=== PATIENT | male | born 1940 | race Caucasian/White ===

== ENCOUNTER 2022-06-07 11:20 | Day surgery (SDC) | payer OTHER ==
[~2022-06-07] VITALS: Ht 167.6 cm; Wt 92.6 kg
[~2022-06-07 11:20] MED LIST: ACET325; ALLO300 PO; CHOLP; CLON.1; DICMIS75EC; DIPASPER; EZET10; FINA5 PO; FOLI1; GABA800 PO; GLUCHON PO; HYDACE5 PO; OXYC10ER; PRAM.5; ROPI2; ROSU10TA PO; VITB100; WARF5 PO; WARF7.5 PO; [UNRECOGNIZED DRUG - OTHER] PO
[2022-06-07] MEDS ORDERED: TAMS.4ER (12:31)
[2022-06-07] MEDS ORDERED: XARELTO20 MG (12:31)
[2022-06-07] MEDS ORDERED: FERSU90EL (12:31)
[2022-06-07] MEDS ORDERED: CREON DR 3,0001 EACH (12:31)
== END 2022-06-07 14:56 | disposition home or self-care (01) ==
LOC: ORSCSDS 11:20
PROVIDERS: Internal Medicine Gastroenterology
PROC: 0DBL8ZX Excision of Transverse Colon, Via Natural or Artificial Opening Endoscopic, Diagnostic (ICD-10-PCS; principal; 2022-06-07 12:45)
PROC: 0DBH8ZX Excision of Cecum, Via Natural or Artificial Opening Endoscopic, Diagnostic (ICD-10-PCS; principal; 2022-06-07 12:45)
DX: Z12.11 Encounter for screening for malignant neoplasm of colon (principal); Z86.010 Personal history of colon polyps; D12.0 Benign neoplasm of cecum; D12.3 Benign neoplasm of transverse colon; K57.30 Diverticulosis of large intestine without perforation or abscess without bleeding; K64.8 Other hemorrhoids; I10 Essential (primary) hypertension; I48.91 Unspecified atrial fibrillation; Z79.01 Long term (current) use of anticoagulants; J44.9 Chronic obstructive pulmonary disease, unspecified; Z87.891 Personal history of nicotine dependence; G47.33 Obstructive sleep apnea (adult) (pediatric); Z79.899 Other long term (current) drug therapy
CPT/HCPCS: 88305; J0330; J0461; J2405; J2704; J7120; Q9968

== ENCOUNTER → 2023-12-11 | Outpatient (CLI) | payer OTHER ==
[~2023-12-11] MED LIST changes: +CREON DR 3,0001 EACH; +FERSU90EL; +TAMS.4ER; +XARELTO20 MG
[2023-12-14 21:02] LABS: PANCREATIC ELASTASE,FECAL 216 ug/g (>=100)
[2023-12-15 21:40] LABS: CALPROTECTIN,FECAL 200 ug/g (<=49)
== END | disposition home or self-care (01) ==
LOC: LAB 20:40 → LAB SHORT 20:40
PROVIDERS: Physician Assistant Medical
DX: R19.7 Diarrhea, unspecified (principal)
CPT/HCPCS: 82653; 83993

== ENCOUNTER 2024-01-27 10:11 | Emergency (ER) | payer OTHER ==
[~2024-01-27] VITALS: Ht 167.6 cm; Wt 95.2 kg
[~2024-01-27 10:11] MED LIST changes: +FOLIC ACID0.4 MG PO; +ROPINIROLE HCL4 M1 PO; -XARELTO20 MG; +XARELTO20 MG PO
[2024-01-27 10:41] LABS: BASOPHILS ABSOLUTE AUTO 0.04 K/mm3 (0.00-0.23); BASOPHILS PERCENT AUTO 1 % (0-2); EOSINOPHILS ABSOLUTE AUTO 0.11 K/mm3 (0.00-0.68); EOSINOPHILS PERCENT AUTO 3 % (0-6); Hematocrit 40.6 % (37.0-53.0); Hemoglobin 13.1 g/dL (13.5-17.5); IMMATURE GRAN ABSOLUTE AUTO 0.02 K/mm3 (0.00-0.10); IMMATURE GRAN PERCENT AUTO 1 % (0-1); LYMPHOCYTES ABSOLUTE AUTO 1.02 K/mm3 (0.84-5.20); LYMPHOCYTES PERCENT AUTO 24 % (21-46); MONOCYTES ABSOLUTE AUTO 0.41 K/mm3 (0.16-1.47); MONOCYTES PERCENT AUTO 10 % (4-13); Mean Corpuscular HGB 29.3 pg (26.0-34.0); Mean Corpuscular HGB Conc 32.3 g/dL (31.5-36.5); Mean Corpuscular Volume 91 fL (80-100); Mean Platelet Volume 10.1 fL (9.1-12.4); NEUTROPHILS ABSOLUTE AUTO 2.72 K/mm3 (1.96-9.15); NEUTROPHILS PERCENT AUTO 63 % (41-73); Platelet Count 112 K/mm3 (150-400); RDW Coefficient Variation 18.4 % (11.7-14.2); RDW Standard Deviation 61.5 fL (35.1-46.3); Red Blood Cell Count 4.47 M/mm3 (4.30-5.90); White Blood Cell Count 4.32 K/mm3 (4.00-11.30)
[2024-01-27 11:00] VITALS: BP 125/73
[2024-01-27 11:12] LABS: Albumin, Blood 3.1 g/dL (3.4-5.0); Albumin/Globulin Ratio 0.9 (0.8-1.8); Bilirubin, Total 0.7 mg/dL (0.1-1.0); Bun/Creatinine Ratio 17.2 (12.0-20.0); Calcium, Blood 8.5 mg/dL (8.5-10.1); Creatinine, Blood 1.28 mg/dL (0.60-1.20); Globulin, Blood 3.5 g/dL (2.2-4.0); Potassium, Blood 4.3 mmol/L (3.5-5.5); Total Protein, Blood 6.6 g/dL (6.4-8.2)
[2024-01-27] MEDS ORDERED: Diphth,Pertuss(Acell),Tet Vac 0.5 ML VIAL IM ONE (11:40)
[2024-01-27] MEDS ORDERED: Lasix20 MG PO (12:45)
== END 2024-01-27 13:16 | disposition home or self-care (01) ==
LOC: ER 10:11
PROVIDERS: Emergency Medicine
DX: R06.02 Shortness of breath (principal); I11.9 Hypertensive heart disease without heart failure; I50.9 Heart failure, unspecified; I48.91 Unspecified atrial fibrillation; E78.5 Hyperlipidemia, unspecified; G47.30 Sleep apnea, unspecified; Z79.899 Other long term (current) drug therapy; Z88.8 Allergy status to other drugs, medicaments and biological substances
CPT/HCPCS: 71045; 80053; 83880; 84484; 85025; 90715

== ENCOUNTER 2024-03-19 05:33 | Day surgery (SDC) | payer OTHER ==
[~2024-03-19 05:33] MED LIST changes: +ATOR40TA PO; +BANATROL PLUS1 EAC1 PO; +CLOP75 PO; +ELIQUIS2.5 MG PO; +FURO20 PO; +FURO40 PO; +GABA300 PO; +JARDIANCE10 MG PO; +LOSA25 PO; +Lasix20 MG PO; +METO25ER PO; +SOAANZ20 M2 PO
[2024-03-19] MEDS ORDERED: NS 0 ML IV ONE (06:14)
[2024-03-19] MEDS ORDERED: Amiodarone HCl200 MG PO (06:28)
[2024-03-19 06:39] VITALS: BP 114/75
[2024-03-19 06:45] VITALS: BP 104/75
[2024-03-19 06:51] VITALS: BP 104/71
--- NOTE | 2024-03-19 07:16 | NUR ---
PT PLACED ON MONITOR. SB 50-59BPM. EKG DONE. IV REMOVED. PT VERBALIZED UNDERSTANDING OF VERBAL D/C INST. PT TAKEN OUT OF THE DEPARTMENT VIA W/C POST MEETING /C .
== END 2024-03-19 07:00 | disposition home or self-care (01) ==
LOC: MHTC 05:33
DX: I48.91 Unspecified atrial fibrillation (principal); Z53.09 Procedure and treatment not carried out because of other contraindication
CPT/HCPCS: 93005; 93010; J7030

== ENCOUNTER → 2024-06-30 | Outpatient (CLI) | payer OTHER ==
[~2024-06-30] MED LIST changes: +Amiodarone HCl200 MG PO
== END | disposition home or self-care (01) ==
LOC: LAB 07:54 → PLD 07:54
DX: D04.39 Carcinoma in situ of skin of other parts of face (principal)
CPT/HCPCS: 88305

== ENCOUNTER 2024-07-23 20:03 | Observation (INO) | payer OTHER ==
[~2024-07-23] VITALS: Ht 198.1 cm; Wt 89.2 kg
[~2024-07-23 20:03] MED LIST changes: +Enoxaparin 30 MG/0.3 ML SYR SC SCH
[2024-07-23 20:56] LABS: BASOPHILS ABSOLUTE AUTO 0.03 K/mm3 (0.00-0.23); BASOPHILS PERCENT AUTO 1 % (0-2); EOSINOPHILS ABSOLUTE AUTO 0.19 K/mm3 (0.00-0.68); EOSINOPHILS PERCENT AUTO 4 % (0-6); Hematocrit 40.1 % (37.0-53.0); Hemoglobin 13.5 g/dL (13.5-17.5); IMMATURE GRAN ABSOLUTE AUTO 0.04 K/mm3 (0.00-0.10); IMMATURE GRAN PERCENT AUTO 1 % (0-1); LYMPHOCYTES ABSOLUTE AUTO 0.65 K/mm3 (0.84-5.20); LYMPHOCYTES PERCENT AUTO 12 % (21-46); MONOCYTES ABSOLUTE AUTO 0.76 K/mm3 (0.16-1.47); MONOCYTES PERCENT AUTO 14 % (4-13); Mean Corpuscular HGB Conc 33.7 g/dL (31.5-36.5); Mean Corpuscular Volume 89 fL (80-100); Mean Platelet Volume 10.7 fL (9.1-12.4); NEUTROPHILS ABSOLUTE AUTO 3.79 K/mm3 (1.96-9.15); NEUTROPHILS PERCENT AUTO 70 % (41-73); Platelet Count 130 K/mm3 (150-400); RDW Standard Deviation 62.4 fL (35.1-46.3); White Blood Cell Count 5.46 K/mm3 (4.00-11.30)
[2024-07-23 21:10] LABS: Base Excess Venous -0.8 mmol/L; Bicarbonate Venous 23.2 mmol/L (24.0-30.0); PCO2 Venous 41.9 mmHg (38-42); pH Blood Venous 7.37 (7.34-7.37)
[2024-07-23 21:12] LABS: Bun/Creatinine Ratio 22.2 (12.0-20.0); Calcium, Blood 8.2 mg/dL (8.5-10.1); Creatinine, Blood 1.89 mg/dL (0.60-1.20); Potassium, Blood 4.5 mmol/L (3.5-5.5)
[2024-07-23 21:49] LABS: Influenza A, PCR NEGATIVE (NEGATIVE); Influenza B, PCR NEGATIVE (NEGATIVE); Resp Syncytial Virus, PCR NEGATIVE (NEGATIVE); SARS-Cov-2 (COVID-19) PCR, MMC NEGATIVE (NEGATIVE)
[2024-07-23] MEDS ORDERED: rOPINIRole HCl 2 MG Tab PO ONE (23:35)
[2024-07-23] MEDS ORDERED: NS 1,000 ML IV SCH (23:50)
[2024-07-23] MEDS ORDERED: FLU VACC TS2024-25(6MOS UP)/PF 45 MCG/0.5 ML SYRINGE IM ONE (23:50)
[2024-07-23] MEDS ORDERED: Ondansetron HCl 2 MG / ML 2ML Vial IV PRN (23:50)
[2024-07-24 00:27] LABS: Source, Urine Clean Catch
[2024-07-24 00:37] LABS: Bilirubin, Urine Neg (Neg); Blood, Urine 3+ (Neg); Glucose Qualitative, Urine 4+ (Neg); Ketones, Urine Neg (Neg); Leukocyte Esterase, Urine Neg (Neg); Nitrite, Urine Neg (Neg); Protein, Urine Neg (Neg); Urobilinogen, Urine NORM (Normal)
[2024-07-24] MEDS ORDERED: Apixaban 5 MG Tab PO SCH (00:39)
[2024-07-24 00:48] LABS: Albumin, Blood 3.2 g/dL (3.4-5.0); Albumin/Globulin Ratio 0.8 (0.8-1.8); Bilirubin, Direct 0.2 mg/dL (0.0-0.3); Bilirubin, Indirect 0.5 mg/dL (0.1-0.7); Bilirubin, Total 0.7 mg/dL (0.1-1.0); Globulin, Blood 3.9 g/dL (2.2-4.0); Total Protein, Blood 7.1 g/dL (6.4-8.2)
[2024-07-24] MEDS ORDERED: FERSU300 PO (00:52)
[2024-07-24 01:09] LABS: Appearance, Urine Clear (Clear); Bacteria Few /hpf; Color, Urine Pale Yellow (P-Yellow); Squamous Epithelial Cells Few /hpf (Few); White Blood Cells, Urine 0-2 /hpf (0-5)
[2024-07-24 08:32] LABS: BASOPHILS ABSOLUTE AUTO 0.03 K/mm3 (0.00-0.23); BASOPHILS PERCENT AUTO 1 % (0-2); EOSINOPHILS ABSOLUTE AUTO 0.26 K/mm3 (0.00-0.68); EOSINOPHILS PERCENT AUTO 6 % (0-6); Hematocrit 40.5 % (37.0-53.0); Hemoglobin 13.6 g/dL (13.5-17.5); IMMATURE GRAN ABSOLUTE AUTO 0.03 K/mm3 (0.00-0.10); IMMATURE GRAN PERCENT AUTO 1 % (0-1); LYMPHOCYTES ABSOLUTE AUTO 0.59 K/mm3 (0.84-5.20); LYMPHOCYTES PERCENT AUTO 13 % (21-46); MONOCYTES PERCENT AUTO 13 % (4-13); Mean Corpuscular HGB 30.1 pg (26.0-34.0); Mean Corpuscular HGB Conc 33.6 g/dL (31.5-36.5); Mean Corpuscular Volume 90 fL (80-100); Mean Platelet Volume 11.1 fL (9.1-12.4); NEUTROPHILS ABSOLUTE AUTO 2.98 K/mm3 (1.96-9.15); NEUTROPHILS PERCENT AUTO 66 % (41-73); Platelet Count 126 K/mm3 (150-400); RDW Standard Deviation 62.2 fL (35.1-46.3); Red Blood Cell Count 4.52 M/mm3 (4.30-5.90); White Blood Cell Count 4.49 K/mm3 (4.00-11.30)
[2024-07-24 08:37] LABS: Albumin, Blood 3.2 g/dL (3.4-5.0); Albumin/Globulin Ratio 0.8 (0.8-1.8); Bilirubin, Total 0.7 mg/dL (0.1-1.0); Bun/Creatinine Ratio 22.5 (12.0-20.0); Calcium, Blood 8.7 mg/dL (8.5-10.1); Creatinine, Blood 1.73 mg/dL (0.60-1.20); Globulin, Blood 3.8 g/dL (2.2-4.0); Potassium, Blood 3.8 mmol/L (3.5-5.5)
[2024-07-24] MEDS ORDERED: TAMS.4ER PO (09:54)
[2024-07-24] MEDS ORDERED: SPIR25 PO (09:54)
[2024-07-24] MEDS ORDERED: PANT20 PO (09:55)
[2024-07-24] MEDS ORDERED: TORS10 PO (09:55)
[2024-07-24] MEDS ORDERED: VYNDAMAX61 MG PO (10:34)
[2024-07-24 11:00] VITALS: BP 106/68
[2024-07-24] MEDS ORDERED: Finasteride 5 MG Tab PO SCH (11:50)
[2024-07-24] MEDS ORDERED: Amiodarone HCl 200 MG Tab PO SCH (12:00)
[2024-07-24] MEDS ORDERED: Allopurinol 300 MG Tab PO SCH (12:00)
--- NOTE | 2024-07-24 12:55 | NUR ---
ED TO PCU TRANSFER NOTE: PT ARRIVED TO PCU 8 FROM ED VIA [facility]. PT ARRIVES A&OX4. ABLE TO STAND AND TRANSFER TO BED FROM [facility]. FOLLOWS COMMANDS. DAUGHTER AT BEDSIDE WITH PT ON ARRIVAL. NS RUNNING AT 75ML/HR. DENIES ANY COMPLAINTS AT THIS TIME. CALL LIGHT IN REACH.
[2024-07-24] MEDS ORDERED: Gabapentin 300 MG Cap PO SCH (14:00)
[2024-07-24] MEDS ORDERED: rOPINIRole HCl 1 MG Tab PO SCH (14:00)
[2024-07-24 14:05] VITALS: BP 107/88
[2024-07-24] MEDS ORDERED: Pantoprazole Sodium 40 MG Tab PO SCH (16:30)
--- NOTE | 2024-07-24 18:44 | NUR ---
SHIFT/ DISCHARGED SUMMERY: NO ACUTE EVENTS HAPPENED SINCE ARRIVAL TO PCU. PT REMAINED FREE OF ANY CP, SOB OR DIZZINESS. PT DISCAHRGED TO HOME AT 1800. THIS RN WENT OVER DC INSTRUCTIONS WITH PT AND DAUGHTER. THIS RN ANSWERED ANY QUESTIONS OR CONCERNS. BELONGINGS WERE COLLECTED AND SENT WITH PT. IV WAS REMOVED WITH CATHETER INTACT. PT WAS WHEELED OUT BY JASMIN.
[2024-07-25] MEDS ORDERED: Clopidogrel Bisulfate 75 MG Tab PO SCH (09:00)
[2024-07-25] MEDS ORDERED: Tamsulosin HCl 0.4 MG Cap PO SCH (09:00)
[2024-07-25] MEDS ORDERED: TAFAMIDIS 61 MG PO SCH (09:00)
[2024-07-25] MEDS ORDERED: Atorvastatin 40 MG Tab PO SCH (09:00)
[2024-07-25] MEDS ORDERED: Folic Acid 400 MCG TAB PO SCH (09:00)
[2024-07-25] MEDS ORDERED: Metoprolol Succinate 25 MG TABCR PO SCH (09:00)
[2024-07-25] MEDS ORDERED: Ferrous Sulfate 325 MG Tab PO SCH (09:00)
[2024-07-25] MEDS ORDERED: Empagliflozin 10 MG TAB PO SCH (09:00)
== END 2024-07-24 18:00 | disposition home or self-care (01) ==
LOC: ER 20:03 → ERHOLD 20:04 → PCU 07-24 10:50
PROVIDERS: Emergency Medicine; ADMIT Internal Medicine
DX: I95.1 Orthostatic hypotension (principal); G25.81 Restless legs syndrome; I48.91 Unspecified atrial fibrillation; G47.33 Obstructive sleep apnea (adult) (pediatric); N40.0 Benign prostatic hyperplasia without lower urinary tract symptoms; M10.9 Gout, unspecified; I25.10 Atherosclerotic heart disease of native coronary artery without angina pectoris; I13.0 Hypertensive heart and chronic kidney disease with heart failure and stage 1 through stage 4 chronic kidney disease, or unspecified chronic kidney disease; I50.22 Chronic systolic (congestive) heart failure; N18.31 Chronic kidney disease, stage 3a; Z79.899 Other long term (current) drug therapy; Z99.89 Dependence on other enabling machines and devices
CPT/HCPCS: 0241U; 36415; 71045; 80048; 80053; 80076; 81001; 82330; 82803; 83880; 84484; 85025; 85379; 93005; 93010; 96360; 96361; 97116; 97162; 99285-25; A9270; G0378; J7030

== ENCOUNTER 2024-07-30 11:51 | Emergency (ER) | payer OTHER ==
[~2024-07-30] VITALS: Ht 167.6 cm; Wt 87.1 kg
[~2024-07-30 11:51] MED LIST changes: -Enoxaparin 30 MG/0.3 ML SYR SC SCH; +FERSU300 PO; +PANT20 PO; +SPIR25 PO; +TAMS.4ER PO; +TORS10 PO; +VYNDAMAX61 MG PO
[2024-07-30] MEDS ORDERED: NS 1,000 ML IV SCH (12:50)
[2024-07-30 12:58] LABS: BASOPHILS ABSOLUTE AUTO 0.05 K/mm3 (0.00-0.23); BASOPHILS PERCENT AUTO 1 % (0-2); EOSINOPHILS ABSOLUTE AUTO 0.31 K/mm3 (0.00-0.68); EOSINOPHILS PERCENT AUTO 6 % (0-6); Hematocrit 38.9 % (37.0-53.0); Hemoglobin 13.2 g/dL (13.5-17.5); IMMATURE GRAN ABSOLUTE AUTO 0.02 K/mm3 (0.00-0.10); IMMATURE GRAN PERCENT AUTO 0 % (0-1); LYMPHOCYTES PERCENT AUTO 12 % (21-46); MONOCYTES ABSOLUTE AUTO 0.74 K/mm3 (0.16-1.47); MONOCYTES PERCENT AUTO 14 % (4-13); Mean Corpuscular HGB 30.1 pg (26.0-34.0); Mean Corpuscular HGB Conc 33.9 g/dL (31.5-36.5); Mean Corpuscular Volume 89 fL (80-100); Mean Platelet Volume 10.7 fL (9.1-12.4); NEUTROPHILS PERCENT AUTO 67 % (41-73); Platelet Count 148 K/mm3 (150-400); RDW Coefficient Variation 19.1 % (11.7-14.2); RDW Standard Deviation 62.4 fL (35.1-46.3); Red Blood Cell Count 4.38 M/mm3 (4.30-5.90); White Blood Cell Count 5.22 K/mm3 (4.00-11.30)
[2024-07-30 13:09] LABS: Albumin, Blood 3.1 g/dL (3.4-5.0); Albumin/Globulin Ratio 0.8 (0.8-1.8); Bilirubin, Total 0.8 mg/dL (0.1-1.0); Bun/Creatinine Ratio 18.5 (12.0-20.0); Creatinine, Blood 1.73 mg/dL (0.60-1.20); Potassium, Blood 4.6 mmol/L (3.5-5.5); Total Protein, Blood 7.1 g/dL (6.4-8.2)
[2024-07-30 15:40] VITALS: BP 91/62
== END 2024-07-30 15:40 | disposition home or self-care (01) ==
LOC: ER 11:51
PROVIDERS: Student in an Organized Health Care Education/Training Program
DX: I95.1 Orthostatic hypotension (principal); G47.30 Sleep apnea, unspecified; I48.91 Unspecified atrial fibrillation; E78.5 Hyperlipidemia, unspecified; I11.0 Hypertensive heart disease with heart failure; I50.30 Unspecified diastolic (congestive) heart failure; Z79.02 Long term (current) use of antithrombotics/antiplatelets; Z79.899 Other long term (current) drug therapy; Z88.8 Allergy status to other drugs, medicaments and biological substances
CPT/HCPCS: 71045; 80053; 83880; 84484; 85025; 93005; 93010; 96360; 96361; 99284-25; J7030

== ENCOUNTER 2024-10-07 15:10 | Observation (INO) | payer OTHER ==
[~2024-10-07] VITALS: Ht 167.6 cm; Wt 93.0 kg
[~2024-10-07 15:10] MED LIST changes: +ASCO500 PO; +B-121000 MC3 PO; +Flomax0.4 MG PO; +LOPE2C PO; +NITR.4SL SL; +RANO500T PO; +Vitamin D1000 UNI1 PO
[2024-10-07 16:01] LABS: BASOPHILS ABSOLUTE AUTO 0.03 K/mm3 (0.00-0.23); BASOPHILS PERCENT AUTO 1 % (0-2); EOSINOPHILS ABSOLUTE AUTO 0.09 K/mm3 (0.00-0.68); EOSINOPHILS PERCENT AUTO 2 % (0-6); Hematocrit 40.7 % (37.0-53.0); Hemoglobin 13.8 g/dL (13.5-17.5); IMMATURE GRAN ABSOLUTE AUTO 0.04 K/mm3 (0.00-0.10); IMMATURE GRAN PERCENT AUTO 1 % (0-1); LYMPHOCYTES ABSOLUTE AUTO 0.57 K/mm3 (0.84-5.20); LYMPHOCYTES PERCENT AUTO 13 % (21-46); MONOCYTES ABSOLUTE AUTO 0.36 K/mm3 (0.16-1.47); MONOCYTES PERCENT AUTO 8 % (4-13); Mean Corpuscular HGB 30.6 pg (26.0-34.0); Mean Corpuscular HGB Conc 33.9 g/dL (31.5-36.5); Mean Corpuscular Volume 90 fL (80-100); Mean Platelet Volume 11.4 fL (9.1-12.4); NEUTROPHILS ABSOLUTE AUTO 3.37 K/mm3 (1.96-9.15); NEUTROPHILS PERCENT AUTO 76 % (41-73); Platelet Count 120 K/mm3 (150-400); RDW Coefficient Variation 19.2 % (11.7-14.2); RDW Standard Deviation 63.3 fL (35.1-46.3); Red Blood Cell Count 4.51 M/mm3 (4.30-5.90); White Blood Cell Count 4.46 K/mm3 (4.00-11.30)
[2024-10-07 16:20] LABS: Albumin, Blood 3.4 g/dL (3.4-5.0); Bilirubin, Total 0.5 mg/dL (0.1-1.0); Bun/Creatinine Ratio 12.8 (12.0-20.0); Calcium, Blood 8.8 mg/dL (8.5-10.1); Creatinine, Blood 1.88 mg/dL (0.60-1.20); Globulin, Blood 3.4 g/dL (2.2-4.0); Potassium, Blood 5.3 mmol/L (3.5-5.5); Total Protein, Blood 6.8 g/dL (6.4-8.2)
[2024-10-07] MEDS ORDERED: Ondansetron HCl 2 MG / ML 2ML Vial IV ONE (18:15)
[2024-10-07] MEDS ORDERED: Morphine Sulfate 4 MG/1 ML Injection IV ONE ×2 (18:15→22:00)
[2024-10-07] MEDS ORDERED: NS 1,000 ML IV SCH (18:20)
[2024-10-07] MEDS ORDERED: Morphine Sulfate 4 MG/1 ML Injection IV PRN (21:15)
[2024-10-07] MEDS ORDERED: Ondansetron HCl 2 MG / ML 2ML Vial IV PRN (21:15)
[2024-10-08] MEDS ORDERED: rOPINIRole HCl 2 MG Tab PO ONE (00:40)
[2024-10-08 03:50] VITALS: BP 113/76
--- NOTE | 2024-10-08 04:18 | NUR ---
ADMISSION REPORT RECEIVED FROM ER NURSE. PATIENT ARRIVED TO PCU, STOOD AND PIVOTED TO PCU BED WITH 2 PERSON ASSIST. PATIENT VERY [place] ABLE TO MAKE NEEDS KNOWN. ORIENTED x4. BP STABLE. ON RA WITH SPO2 >90%. PATIENT REPORTING SOME SOB WITH EXERTION. PLACED ON TELE, SR 70s. PROVIDED WITH URINAL. PATIENT ORIENTED TO ROOM AND CALL LIGHT SYSTEM.
[2024-10-08 05:01] LABS: Hematocrit 41.3 % (37.0-53.0); Hemoglobin 13.3 g/dL (13.5-17.5); Mean Corpuscular HGB 29.9 pg (26.0-34.0); Mean Corpuscular HGB Conc 32.2 g/dL (31.5-36.5); Mean Corpuscular Volume 93 fL (80-100); Mean Platelet Volume 11.1 fL (9.1-12.4); Platelet Count 120 K/mm3 (150-400); RDW Coefficient Variation 19.3 % (11.7-14.2); RDW Standard Deviation 64.9 fL (35.1-46.3); Red Blood Cell Count 4.45 M/mm3 (4.30-5.90); White Blood Cell Count 5.45 K/mm3 (4.00-11.30)
[2024-10-08 05:16] LABS: Bun/Creatinine Ratio 14.8 (12.0-20.0); Calcium, Blood 8.3 mg/dL (8.5-10.1); Creatinine, Blood 1.69 mg/dL (0.60-1.20); Magnesium, Blood 2.2 mg/dL (1.6-2.4); Potassium, Blood 4.5 mmol/L (3.5-5.5)
--- NOTE | 2024-10-08 05:59 | NUR ---
SHIFT SUMMARY PATIENT ADMITTED TO PCU 3 MEDICAL TELE STATUS. PATIENT ALERT, ORIENTED x4, VERY [place]. BP STABLE. TELE READING SR. DENIES CHEST PAIN OR LIGHT HEADEDNESS SINCE ADMISSION. PATIENT MEDICATED PER EMAR FOR "BACK SPASMS". NO OTHER CHANGES SINCE ADMISSION NOTE. WILL REPORT TO DAY SHIFT RN.
[2024-10-08] MEDS ORDERED: Pantoprazole Sodium 40 MG Tab PO SCH (06:00)
[2024-10-08] MEDS ORDERED: Loperamide HCl 2 MG Cap PO PRN (07:10)
[2024-10-08] MEDS ORDERED: Torsemide 20 MG TAB PO PRN (07:15)
[2024-10-08 07:46] VITALS: BP 111/71
[2024-10-08] MEDS ORDERED: Morphine Sulfate 4 MG/1 ML Injection IV PRN (09:00)
[2024-10-08] MEDS ORDERED: Empagliflozin 10 MG TAB PO SCH (09:00)
[2024-10-08] MEDS ORDERED: Ferrous Sulfate 325 MG Tab PO SCH (09:00)
[2024-10-08] MEDS ORDERED: Docusate Sodium/Senna 1 Tab PO SCH (09:00)
[2024-10-08] MEDS ORDERED: Spironolactone 25 MG Tab PO SCH (09:00)
[2024-10-08] MEDS ORDERED: Ascorbic Acid 500 MG Tab PO SCH (09:00)
[2024-10-08] MEDS ORDERED: Cyanocobalamin 500 MCG Tab PO SCH (09:00)
[2024-10-08] MEDS ORDERED: Gabapentin 300 MG Cap PO SCH (09:00)
[2024-10-08] MEDS ORDERED: rOPINIRole HCl 2 MG Tab PO SCH (09:00)
[2024-10-08] MEDS ORDERED: TAFAMIDIS 61 MG PO SCH (09:00)
[2024-10-08] MEDS ORDERED: Enoxaparin 40 MG/0.4 ML SYR SC SCH (09:00)
[2024-10-08] MEDS ORDERED: Tamsulosin HCl 0.4 MG Cap PO SCH (09:00)
[2024-10-08] MEDS ORDERED: Amiodarone HCl 200 MG Tab PO SCH (09:00)
[2024-10-08] MEDS ORDERED: Finasteride 5 MG Tab PO SCH (09:00)
[2024-10-08] MEDS ORDERED: Cyclobenzaprine HCl 10 MG Tab PO PRN (09:25)
[2024-10-08 11:20] VITALS: BP 106/69
[2024-10-08] MEDS ORDERED: TraMADol HCl 50 MG Tab PO PRN (14:00)
[2024-10-08] MEDS ORDERED: Cyclobenzaprine5 MG PO (15:06)
[2024-10-08 15:53] VITALS: BP 104/70
--- NOTE | 2024-10-08 17:33 | NUR ---
Shift Summary Pt alert, oriented x4; [place]; calm and cooperative with care. Pt resting in bed, repositioned for comfort. Pt reports back pain and spasms, medicated per emar, hearing pad placed, discussed pain management with Dr Javier, orders entered. Pt denies chest pain/pressure, sob, dizziness. Pt had episode of nausea/emesis this afternoon, daughter at bedside states that is why they have the outpatient scope scheduled. Tele sinus bbb and 1st degree heart block, bp stable. Spo2 >90% on ra, breathing even and unlabored. Abd soft, nontender, +bt. Other vss. No other acute changes noted. Holding discharge due to pain.
[2024-10-08 20:16] VITALS: BP 106/67
[2024-10-09] VITALS (8 sets, daily range): BP systolic 107–127; BP diastolic 64–91
--- NOTE | 2024-10-09 05:00 | NUR ---
SHIFT SUMMARY: PT HERE FOR CHEST PAIN SYNCOPE GLF - NO REPORTS OF CHEST PAIN THIS SHIFT PT DID ENDORSE LEFT ARM BACK PAIN FROM FALL, NO SYNCOPAL EPISODES NOTED THIS SHIFT, PT ABLE TO MAINTAIN BALANCE WITH ADLS, NEURO A&O X4, NSR B/P WNL, NPO SINCE MIDNIGHT PER ORDER FOR SCOPE, NO N/V SMALL SKIN TEARS X2 NO ISSUE NOTED, PT ABLE TO STAND AT BEDSIDE TO ASSIST WITH URINATION INTO URINAL 1 PERSON DILL[place] ASHLEY PATCH ON
[2024-10-09] MEDS ORDERED: Lactated Ringer's 1,000 ML IV SCH (06:15)
[2024-10-09] MEDS ORDERED: Benzocaine Oral Spray 0.5ML UD ONE (06:41)
[2024-10-09] MEDS ORDERED: propofoL 20 ML IV ONE ×2 (06:42→07:17)
[2024-10-09 06:48] LABS: BASOPHILS ABSOLUTE AUTO 0.03 K/mm3 (0.00-0.23); BASOPHILS PERCENT AUTO 1 % (0-2); EOSINOPHILS ABSOLUTE AUTO 0.17 K/mm3 (0.00-0.68); EOSINOPHILS PERCENT AUTO 3 % (0-6); Hematocrit 39.8 % (37.0-53.0); Hemoglobin 12.9 g/dL (13.5-17.5); IMMATURE GRAN ABSOLUTE AUTO 0.03 K/mm3 (0.00-0.10); IMMATURE GRAN PERCENT AUTO 1 % (0-1); LYMPHOCYTES ABSOLUTE AUTO 0.75 K/mm3 (0.84-5.20); LYMPHOCYTES PERCENT AUTO 13 % (21-46); MONOCYTES ABSOLUTE AUTO 0.49 K/mm3 (0.16-1.47); MONOCYTES PERCENT AUTO 9 % (4-13); Mean Corpuscular HGB 29.7 pg (26.0-34.0); Mean Corpuscular HGB Conc 32.4 g/dL (31.5-36.5); Mean Corpuscular Volume 92 fL (80-100); Mean Platelet Volume 10.2 fL (9.1-12.4); NEUTROPHILS PERCENT AUTO 74 % (41-73); Platelet Count 118 K/mm3 (150-400); RDW Coefficient Variation 19.3 % (11.7-14.2); RDW Standard Deviation 65.1 fL (35.1-46.3); Red Blood Cell Count 4.35 M/mm3 (4.30-5.90); White Blood Cell Count 5.67 K/mm3 (4.00-11.30)
[2024-10-09 07:10] LABS: Albumin, Blood 3.2 g/dL (3.4-5.0); Albumin/Globulin Ratio 0.9 (0.8-1.8); Bilirubin, Total 0.5 mg/dL (0.1-1.0); Bun/Creatinine Ratio 14.7 (12.0-20.0); Calcium, Blood 8.4 mg/dL (8.5-10.1); Creatinine, Blood 1.36 mg/dL (0.60-1.20); Globulin, Blood 3.4 g/dL (2.2-4.0); Potassium, Blood 4.7 mmol/L (3.5-5.5); Total Protein, Blood 6.6 g/dL (6.4-8.2)
[2024-10-09] MEDS ORDERED: EpiNEPhrine 1 MG/1 ML 1ML Vial IV ONE (07:39)
[2024-10-09] MEDS ORDERED: NS 250 ML IV PRN (07:40)
--- NOTE | 2024-10-09 08:05 | NUR ---
10/09/24 0805 Chon Castro MONITOR INTACT WITH CONTINUOUS PULSE OXIMETRY, CONTINUOUS END TITAL CO2, 3-LEAD EKG AND INTERMITTENT BLOOD PRESSURE. Bite Block Placed O2 VIA POM INTACT THROUGHOUT SEDATION/PROCEDURE.
--- NOTE | 2024-10-09 08:24 | NUR ---
Patient to day surgery at 0700 for scope; transfering to room 329 after scope. Report given to RN assuming care of patient.
--- NOTE | 2024-10-09 11:17 | NUR ---
ASSUMED CARE NOTE RECEIVED REPORT FROM JENS SERRANO FROM PCU AND JENS OSHEA FROM DAY SURGERY. PT ARRIVED ON THE FLOOR FROM DAY SURGERY AT 0830. PT DROWSY, BUT AROUSABLE AND ABLE TO ANSWER QUESTIONS, VSS, AND DENIED PAIN. PT ORIENTED TO ROOM AND CALL LIGHT. CALL LIGHT PLACED WITHIN REACH.
[2024-10-09 12:40] LABS: Calcium, Blood 8.7 mg/dL (8.5-10.1); Creatinine, Blood 1.33 mg/dL (0.60-1.20); Potassium, Blood 4.4 mmol/L (3.5-5.5)
[2024-10-09] MEDS ORDERED: TRAM50 PO (14:26)
--- NOTE | 2024-10-09 16:05 | NUR ---
DISCHARGE NOTE PT D/C HOME W/ HH AT 1600. PT AND PT'S FAMILY PROVIDED W/ VERBA AND WRITTEN INSTRUCTIONS AND REPORTED UNDERSTANDING. PT A&OX4, VSS, AMB W/ ASSIST, TOLERATING PO, VOIDING, AND PAIN MANAGED. HARD SCRIPT GIVEN, COPY PLACED IN CHART. ZIO PATCH REMAINED IN PLACE. BELONGINGS WERE RETURNED AND PT ESCOURTED OUT VIA W/C BY FAMILY.
== END 2024-10-09 15:58 | disposition home health service (06) ==
LOC: ER 15:10 → ERHOLD 21:25 → PCU 21:25 → MEDS 10-09 09:20
PROVIDERS: Nurse Practitioner Acute Care; Student in an Organized Health Care Education/Training Program; ADMIT Student in an Organized Health Care Education/Training Program
DX: R55 Syncope and collapse (principal); I63.9 Cerebral infarction, unspecified; I48.91 Unspecified atrial fibrillation; G25.81 Restless legs syndrome; I13.0 Hypertensive heart and chronic kidney disease with heart failure and stage 1 through stage 4 chronic kidney disease, or unspecified chronic kidney disease; I50.20 Unspecified systolic (congestive) heart failure; N18.30 Chronic kidney disease, stage 3 unspecified; G47.33 Obstructive sleep apnea (adult) (pediatric); N40.0 Benign prostatic hyperplasia without lower urinary tract symptoms; K21.9 Gastro-esophageal reflux disease without esophagitis; E85.9 Amyloidosis, unspecified; I25.10 Atherosclerotic heart disease of native coronary artery without angina pectoris; E78.5 Hyperlipidemia, unspecified; Z88.8 Allergy status to other drugs, medicaments and biological substances; Z79.01 Long term (current) use of anticoagulants; Z79.899 Other long term (current) drug therapy
CPT/HCPCS: 36415; 70450; 71046; 71260; 74177; 80048; 80053; 83735; 83880; 84443; 84484; 85025; 85027; 85379; 93005; 93010; 93246; 93356; 94762; 96361-59; 96374-59; 96375-59; 96376; 96376-59; 97162; 97530; 99285-25; A9270; C8929; G0378; J0171; J2270; J2405; J2704; J7030; J7120; Q9957; Q9967